=== PATIENT | male | born 1960 | race Caucasian/White ===

== ENCOUNTER 2020-05-07 08:45 | Day surgery (SDC) | payer BC ==
[2020-04-30 15:19] LABS: BASOPHILS # (AUTO) 0.1 X10'3 (0-0.2); BASOPHILS % (AUTO) 0.6 % (0-1); EOSINOPHILS # (AUTO) 0.2 X10'3 (0-0.9); EOSINOPHILS % (AUTO) 2.4 % (0-6); HEMATOCRIT 43.9 % (42.0-52.0); HEMOGLOBIN 15.1 g/dl (14.0-17.9); LYMPHOCYTES # (AUTO) 2.5 X10'3 (1.1-4.8); MEAN CORPUSCULAR HEMOGLOBIN 30.9 PG (27.0-31.0); MEAN CORPUSCULAR HGB CONC 34.5 g/dL (33.0-36.5); MEAN CORPUSCULAR VOLUME 89.5 FL (78-98); MEAN PLATELET VOLUME 8.5 FL (7.4-10.4); MONOCYTES # (AUTO) 0.6 X10'3 (0-0.9); MONOCYTES % (AUTO) 6.5 % (2-12); NEUTROPHILS # (AUTO) 5.6 X10'3 (1.8-7.7); NEUTROPHILS % (AUTO) 62.5 % (42-75); PLATELET COUNT 286 X10'3 (140-440); RED CELL DISTRIBUTION WIDTH 12.9 % (11.5-14.5); WHITE BLOOD COUNT 8.9 X10'3 (4.5-11.0)
[2020-04-30 15:26] LABS: PARTIAL THROMBOPLASTIN TIME 28 SECONDS (22-32)
[2020-04-30 15:29] LABS: ALANINE AMINOTRANSFERASE 44 U/L (12-78); ALBUMIN 4.5 G/DL (3.4-5.0); ALBUMIN/GLOBULIN RATIO 1.3 (1.1-1.5); ALKALINE PHOSPHATASE 59 IU/L (46-116); ANION GAP 10 (8-16); ASPARTATE AMINO TRANSFERASE 18 U/L (10-37); BILIRUBIN,TOTAL 0.7 MG/DL (0.1-1.0); BLOOD UREA NITROGEN 21 MG/DL (7-18); CALCIUM 9.1 MG/DL (8.5-10.1); CHLORIDE 106 MMOL/L (99-107); CREATININE 0.84 MG/DL (0.60-1.10); GLUCOSE 98 MG/DL (70-104); POTASSIUM 3.7 MMOL/L (3.5-5.1); SODIUM 141 MMOL/L (135-145); TOTAL CARBON DIOXIDE 24.8 MMOL/L (24-32); TOTAL PROTEIN 7.9 G/DL (6.4-8.2); eGFR > 90 ML/MIN
[~2020-05-07] VITALS: Ht 177.8 cm; Wt 106.9 kg
[2020-05-07] VITALS (13 sets, daily range): BP systolic 131–153; BP diastolic 68–92
[2020-05-07] MEDS ORDERED: nitroGLYCERIN 0.4mg SUBLingual tab SL PRN ×2 (09:55→12:15)
[2020-05-07] MEDS ORDERED: diphenhydrAMINE 25mg capsule PO PRN (09:55)
[2020-05-07] MEDS ORDERED: LORazepam 0.5 MG tablet PO PRN (09:55)
[2020-05-07] MEDS ORDERED: normal saline 1,000 ML IV SCH (09:55)
[2020-05-07] MEDS ORDERED: UBID30CA11 PO (10:06)
[2020-05-07] MEDS ORDERED: ATOR10TA70 PO (10:06)
[2020-05-07] MEDS ORDERED: ACET-1015 PO (10:06)
[2020-05-07] MEDS ORDERED: ASCO-139 PO (10:06)
[2020-05-07] MEDS ORDERED: TRIA1CAP6 PO (10:06)
[2020-05-07] MEDS ORDERED: AMLO5TAB16 PO (10:06)
[2020-05-07] MEDS ORDERED: LIDOcaine 1% (10mg/ml)w/preservative injection 20ml MDV ONE (10:51)
[2020-05-07] MEDS ORDERED: fentaNYL/PF 50MCG/1 ML 2ML syringe ONE (10:51)
[2020-05-07] MEDS ORDERED: iohexol 350MG/ML 100ml bottle IV ONE (10:51)
[2020-05-07] MEDS ORDERED: iohexol 350 MG/ML 50ML vial IV ONE (10:51)
[2020-05-07] MEDS ORDERED: midazolam 2 mg/2 ml injection ONE (10:51)
[2020-05-07] MEDS ORDERED: normal saline 1000ml 1,000 ML IV SCH (12:10)
[2020-05-07] MEDS ORDERED: ondansetron/PF 4mg/2ml inj IV PRN (12:10)
[2020-05-07] MEDS ORDERED: HYDROcodone/acetaminophen 10/325mg tab PO PRN (12:15)
[2020-05-07] MEDS ORDERED: OXAZEpam 15mg capsule PO PRN (12:15)
[2020-05-07] MEDS ORDERED: proCHLORperazine 10 MG/2 ml inj IV PRN (12:15)
[2020-05-07] MEDS ORDERED: HYDROcodone/acetaminophen 5mg/325mg tablet PO PRN (12:15)
[2020-05-07] MEDS ORDERED: FLU VACC QS2020-21(6MOS UP)/PF 60 MCG/0.5 ML SYRINGE IMVAC ONE (15:30)
== END 2020-05-07 18:00 | disposition home or self-care (01) ==
LOC: SSTAY O 08:45
PROVIDERS: ATTEND Internal Medicine Cardiovascular Disease
DX: R94.39 Abnormal result of other cardiovascular function study (principal); R06.09 Other forms of dyspnea; I25.10 Atherosclerotic heart disease of native coronary artery without angina pectoris; I10 Essential (primary) hypertension; E78.5 Hyperlipidemia, unspecified; M19.90 Unspecified osteoarthritis, unspecified site; Z88.8 Allergy status to other drugs, medicaments and biological substances; Z79.899 Other long term (current) drug therapy; Z79.01 Long term (current) use of anticoagulants
CPT/HCPCS: 36415; 71046; 80053; 85025; 85610; 85730; 93005; 93458; 99152; C1760; C1769; J1644; J2001; J2250; J3010; J7030; Q9967; A4620; A6258